=== PATIENT | male | born 1940 | race Caucasian/White ===

== ENCOUNTER → 2017-03-21 | Outpatient (CLI) | payer OTHER, MEDICARE | LOC: FIMAGING 08:22 | PROVIDERS: ATTEND Orthopaedic Surgery | PROC: CP1 Nuclear Medicine, Musculoskeletal System, Planar Nuclear Medicine Imaging (ICD-10-PCS; principal; 2017-03-21) | DX: T84.84XA Pain due to internal orthopedic prosthetic devices, implants and grafts, initial encounter (principal) | CPT/HCPCS: 78315; 78805; A9503; A9570 ==

== ENCOUNTER 2017-12-24 19:46 | Inpatient (IN) | payer OTHER, MEDICARE ==
[2017-12-24] MEDS ORDERED: HYDROmorphONE/DILAUDID 2 MG/ML INJ IVP ONE (20:23)
--- NOTE | 2017-12-24 20:25 | EDPHY ---
H & P <Gualberto Buitrago - Last Filed: 12/24/17 22:38> Stated Complaint: SEVERE LOW BACK PAIN, MRI NEXT WK,XRAY AND INJ LAST WK - Personal History Current Tetanus/Diphtheria Vaccine: Yes - Medical/Surgical History Hx Asthma: No Hx Chronic Respiratory Disease: No Hx Diabetes: No Hx Cardiac Disease: No Hx Renal Disease: No Hx Cirrhosis: No Hx Alcoholism: No Hx HIV/AIDS: No Hx Splenectomy or Spleen Trauma: No Other PMH: L1-S1 FUSION, LEFT SHOULDER, TIA, PE, KIDNEY STONES - Social History Smoking Status: Never smoked <MartinRamesh - Last Filed: 12/24/17 23:01> Time Seen by Provider: 12/24/17 20:05 HPI/ROS: Chief complaint: Low back pain History of present illness: This is a 77-year-old male who presents to the emergency department for severe low back pain. He states he has had low back pain increasing over the last 3 weeks, it dramatically worsened over the last day. He is now unable to move around on his own. He has a history of chronic low back pain. He has had multiple surgeries including fusions and nerve ablation. Further, he states this is complicated by the fact that he is having problems with an allergic reaction to the hardware in his back. He is followed by Dr. Jake Bills who saw him in clinic earlier this week, performed x-rays which were reportedly unremarkable and perform steroid injections. Symptoms have progressed. Earlier today he took 2 [place], 10 mg of Valium and 800 mg of ibuprofen but the pain progresses. He denies any new trauma. He denies any fevers. He denies any new neurologic symptoms compared to his baseline. Review of systems: A 10 point review of systems was obtained and other than described above was negative (Ramesh Salazar) - Physical Exam Exam: General Appearance: Alert, nontoxic. Eyes: Pupils equal and round no pallor or injection. ENT, Mouth: Mucous membranes moist. Respiratory: There are no retractions, lungs are clear to auscultation. Cardiovascular: Regular rate and rhythm. Gastrointestinal: Abdomen is soft and non tender, no masses, bowel sounds normal. Neurological: Alert and oriented x4. Strength and sensation is intact. Reflexes 2+ right patellar and Achilles, trace left patellar and Achilles, this is patient's baseline according him. Straight leg raise is negative bilaterally. Skin: Warm and dry, no rashes. Musculoskeletal: Neck is supple non tender. Extremities are symmetrical, full range of motion. Psychiatric: Patient is oriented X 3, there is no agitation. (Ramesh Salazar) Constitutional: Initial Vital Signs Temperature (C) 36.3 C 12/24/17 19:55 Heart Rate 76 12/24/17 19:55 Respiratory Rate 20 12/24/17 19:55 Blood Pressure 141/67 H 12/24/17 19:55 O2 Sat (%) 94 12/24/17 19:55 O2 Delivery Mode Room Air Allergies/Adverse Reactions: No Known Allergies Allergy (Unverified 12/24/17 19:53) Home Medications: Medication Instructions Recorded Aspirin [Aspirin 81mg (*)] 81 mg PO DAILY 12/24/17 Atorvastatin Calcium [Lipitor 40 40 mg PO DAILY 12/24/17 mg (*)] Clopidogrel Bisulfate [Plavix (*)] 75 mg PO DAILY 12/24/17 DULoxetine [Cymbalta 60 MG (*)] 60 mg PO DAILY 12/24/17 Ibuprofen [Motrin (*)] 400 mg PO Q4-6PRN PRN 12/24/17 Medical Decision Making Consult/Admit Bed Type: [facility] 2215 <Gualberto Buitrago - Last Filed: 12/24/17 22:38> <Ramesh Salazar - Last Filed: 12/24/17 23:01> ED Course/Re-evaluation: Patient is discussed with my secondary supervising physician Dr. Gualberto Buitrago. Patient presents with worsening low back pain. He has a long history of low back pain. He has taken multiple oral medications at home and IV medications here and still unable to ambulate. I will admit him to the hospitalist service. I do not believe emergent MRI is necessary as he is at his neurologic baseline. The plan has has been discussed with the patient who voiced understanding and agreement with it. I have consulted with Dr. Vivek Napoles of Neurosurgery and asked him to see patient in consultation during his admission. (Ramesh Salazar) Other Provider: PHYSICIAN DOCUMENTATION: The patient was evaluated and managed by the Physician Service Parts Coordinator and myself. I have reviewed the chart and agree with the findings and plan of care as documented. In addition, I examined the patient myself at 2235. History confirmed as nontraumatic back pain, only 3/10 after treatment, still can't really walk or move off the bed. Has chronic left quadriceps weakness and left fleming numbness after previous surgery and those findings are not different today. No incontinence or new lower extremity neurologic symptoms. Physical findings as follows: Patellar reflex 2+ on the right, minimal on the left which is chronic for the patient. He has good dorsiflexion and plantar flexion of both feet with toes downgoing and no clonus. Plan for admission to hospitalist service, will inform his neurosurgery group Dr. Jyoti Rainey am the secondary supervising physician. (Gualberto Buitrago) - Data Points Laboratory Results: Laboratory Results 12/24/17 20:48 12/24/17 20:48 12/24/17 12/24/17 20:48 20:48 WBC 7.71 10^3/uL 10^3/uL (3.80-9.50) RBC 4.97 10^6/uL 10^6/uL (4.40-6.38) Hgb 15.5 g/dL g/dL (13.7-17.5) Hct 44.6 % % (40.0-51.0) MCV 89.7 fL fL (81.5-99.8) MCH 31.2 pg pg (27.9-34.1) MCHC 34.8 g/dL g/dL (32.4-36.7) RDW 14.4 % % (11.5-15.2) Plt Count 206 10^3/uL 10^3/uL (150-400) MPV 9.6 fL fL (8.7-11.7) Neut % (Auto) 67.4 % % (39.3-74.2) Lymph % (Auto) 23.5 % % (15.0-45.0) [place] % (Auto) 7.9 % % (4.5-13.0) Eos % (Auto) 0.4 % L % (0.6-7.6) Baso % (Auto) 0.5 % % (0.3-1.7) Nucleat RBC Rel Count 0.0 % % (0.0-0.2) Absolute Neuts (auto) 5.20 10^3/uL 10^3/uL (1.70-6.50) Absolute Lymphs (auto) 1.81 10^3/uL 10^3/uL (1.00-3.00) Absolute Monos (auto) 0.61 10^3/uL 10^3/uL (0.30-0.80) Absolute Eos (auto) 0.03 10^3/uL 10^3/uL (0.03-0.40) Absolute Basos (auto) 0.04 10^3/uL 10^3/uL (0.02-0.10) Absolute Nucleated RBC 0.00 10^3/uL 10^3/uL (0-0.01) Immature Gran % 0.3 % % (0.0-1.1) Immature Gran # 0.02 10^3/uL 10^3/uL (0.00-0.10) Sodium 142 mEq/L mEq/L (135-145) Potassium 4.3 mEq/L mEq/L (3.3-5.0) Chloride 104 mEq/L mEq/L (97-110) Carbon Dioxide 26 mEq/l mEq/l (22-31) Anion Gap 12 mEq/L mEq/L (8-16) BUN 29 mg/dL H mg/dL (7-23) Creatinine 1.0 mg/dL mg/dL (0.7-1.3) Estimated GFR > 60 Glucose 120 mg/dL H mg/dL (70-100) Calcium 9.7 mg/dL mg/dL (8.5-10.4) Medications Given: Discontinued Medications Diazepam (Valium) 5 mg IVP EDNOW ONE Stop: 12/24/17 21:35 Last Admin: 12/24/17 21:41 Dose: 5 mg Hydromorphone HCl (Dilaudid) 1 mg IVP EDNOW ONE Stop: 12/24/17 20:24 Last Admin: 12/24/17 20:50 Dose: 1 mg Departure <Guablerto Buitrago - Last Filed: 12/24/17 22:38> <Ramesh Salazar - Last Filed: 12/24/17 23:01> - Departure Disposition: [facility] Acute Clinical Impression: Back pain Qualifiers: Back pain location: low back pain Chronicity: acute Back pain laterality: unspecified Sciatica presence: without sciatica Qualified Code(s): M54.5 - Low back pain Condition: Good
[2017-12-24] MEDS ORDERED: DIAZEPAM 5 MG/ML 1 ML SYR IVP ONE (21:34)
[2017-12-24 21:44] LABS: PLATELET COUNT 206 10^3/uL (150-400)
[2017-12-24] MEDS ORDERED: ONDANSETRON DISINTEGRATING 4 MG TAB PO PRN (22:27)
[2017-12-24] MEDS ORDERED: ONDANSETRON 4 MG/2 ML VIAL IVP PRN (22:27)
[2017-12-24] MEDS ORDERED: oxyCODONE IR 5 MG TAB PO PRN (22:27)
[2017-12-24] MEDS ORDERED: KETOROLAC 15 MG/1 ML SDV IVP ONE (23:06)
--- NOTE | 2017-12-25 00:03 | PDGENHP ---
History and Physical - Chief Complaint Back pain - History of Present Illness 77 yo M w/ hx of TIA and arthritis presents with intractable back pain. Patient has long history of spinal DJD with a multilevel spinal fusion performed by Dr. Napoles about 10 years ago. Over the last 6 weeks he has been dealing with lower back pain. He describes this as sharp, severe central lower back pain that radiates to the right. This has progressed in severity particularly over the last week. He underwent muscular injections in that area earlier this week without relief. The pain continued to worsen today and then began to involve radiculopathy down his right leg. At this point he came to the ED. He usually takes only Cymbalta for pain. He has been very diligent about avoiding opiate use throughout his long history of chronic back pain. At the time of my evaluation he is comfortable as long as he does not move. Movement exacerbates his pain. He denies any leg weakness or red flag symptoms such as loss of bowel or bladder continence. Case discussed with ED physician Dr. Gualberto Buitrago, previous records reviewed in EMR. History Information - Allergies/Home Medication List Allergies/Adverse Reactions: No Known Allergies Allergy (Unverified 12/24/17 19:53) Home Medications: Aspirin [Aspirin 81mg (*)] 81 mg PO DAILY 12/24/17 [Last Taken 12/24/17 AM] Atorvastatin Calcium [Lipitor 40 mg (*)] 40 mg PO DAILY 12/24/17 [Last Taken 09/07 AM] Clopidogrel Bisulfate [Plavix (*)] 75 mg PO DAILY 12/24/17 [Last Taken 12/24/17 AM] DULoxetine [Cymbalta 60 MG (*)] 60 mg PO DAILY 12/24/17 [Last Taken 12/24/17 AM] Ibuprofen [Motrin (*)] 400 mg PO Q4-6PRN PRN 12/24/17 [Last Taken 12/24/17 PM] I have personally reviewed and updated: family history, medical history - Past Medical History arthritis, TIA - Surgical History Reports: spinal surgery - Family History Additional family history: Asked, denies - Social History Smoking Status: Never smoked Review of Systems Review of Systems: ROS: 10pt was reviewed & negative except for what was stated in HPI & below Physical Exam Physical Exam: Temp Pulse Resp BP Pulse Ox 36.8 C 64 16 128/71 H 96 08/04/18 23:32 12/24/17 23:32 12/24/17 23:32 12/24/17 23:32 12/24/17 23:32 O2 (L/minute) 2 Constitutional: appears nourished, uncomfortable Eyes: PERRL, EOMI Ears, Nose, Mouth, Throat: moist mucous membranes, no oral mucosal ulcers Cardiovascular: regular rate and rhythym, no murmur, rub, or gallop Respiratory: no respiratory distress, clear to auscultation Gastrointestinal: normoactive bowel sounds, soft, non-tender abdomen Skin: warm, normal color Musculoskeletal: full muscle strength, muscular tenderness Neurologic: AAOx3, CN II-XII Intact Psychiatric: interacting appropriately, not anxious Lab Data & Imaging Review 12/24/17 20:48 12/24/17 20:48 WBC 7.71 10^3/uL (3.80-9.50) 12/24/17 20:48 RBC 4.97 10^6/uL (4.40-6.38) 12/24/17 20:48 Hgb 15.5 g/dL (13.7-17.5) 12/24/17 20:48 Hct 44.6 % (40.0-51.0) 12/24/17 20:48 MCV 89.7 fL (81.5-99.8) 12/24/17 20:48 MCH 31.2 pg (27.9-34.1) 12/24/17 20:48 MCHC 34.8 g/dL (32.4-36.7) 12/24/17 20:48 RDW 14.4 % (11.5-15.2) 12/24/17 20:48 Plt Count 206 10^3/uL (150-400) 12/24/17 20:48 MPV 9.6 fL (8.7-11.7) 12/24/17 20:48 Neut % (Auto) 67.4 % (39.3-74.2) 12/24/17 20:48 Lymph % (Auto) 23.5 % (15.0-45.0) 12/24/17 20:48 [place] % (Auto) 7.9 % (4.5-13.0) 12/24/17 20:48 Eos % (Auto) 0.4 % (0.6-7.6) L 12/24/17 20:48 Baso % (Auto) 0.5 % (0.3-1.7) 12/24/17 20:48 Nucleat RBC Rel Count 0.0 % (0.0-0.2) 12/24/17 20:48 Absolute Neuts (auto) 5.20 10^3/uL (1.70-6.50) 12/24/17 20:48 Absolute Lymphs (auto) 1.81 10^3/uL (1.00-3.00) 12/24/17 20:48 Absolute Monos (auto) 0.61 10^3/uL (0.30-0.80) 12/24/17 20:48 Absolute Eos (auto) 0.03 10^3/uL (0.03-0.40) 12/24/17 20:48 Absolute Basos (auto) 0.04 10^3/uL (0.02-0.10) 12/24/17 20:48 Absolute Nucleated RBC 0.00 10^3/uL (0-0.01) 12/24/17 20:48 Immature Gran % 0.3 % (0.0-1.1) 12/24/17 20:48 Immature Gran # 0.02 10^3/uL (0.00-0.10) 12/24/17 20:48 Sodium 142 mEq/L (135-145) 12/24/17 20:48 Potassium 4.3 mEq/L (3.3-5.0) 12/24/17 20:48 Chloride 104 mEq/L (97-110) 12/24/17 20:48 Carbon Dioxide 26 mEq/l (22-31) 12/24/17 20:48 Anion Gap 12 mEq/L (8-16) 12/24/17 20:48 BUN 29 mg/dL (7-23) H 12/24/17 20:48 Creatinine 1.0 mg/dL (0.7-1.3) 12/24/17 20:48 Estimated GFR > 60 12/24/17 20:48 Glucose 120 mg/dL (70-100) H 12/24/17 20:48 Calcium 9.7 mg/dL (8.5-10.4) 12/24/17 20:48 Assessment & Plan Assessment: 77 yo M w/ hx of chronic back pain s/p spinal fusion 10 years ago presents with intractable back pain. Plan: 1. Acute on chronic back pain - Back pain has been bothersome for the last 5-6 weeks but greatly increased in severity over the past few days. The pain is so severe that he cannot ambulate safely. He has also developed radiculopathy down his R leg, which is an unusual symptom for him. He denies red flag symptoms. He had XRs performed earlier this week, which he states were reported as normal. He has a history of spinal fusion by Dr. Napoles about 10 years ago. - Admit for pain control - Toradol IV x1 now hopefully to decrease opiate needs per patient wishes - Oxycodone for moderate pain, morphine for severe, breakthrough pain - Neurosurgery consulted and will evaluate patient in the morning - Will likely need MRI but I will defer this decision to NSG team 2. Hx TIA - On DAPT for this, continue home medications for now. Diet - Regular Code - Full Ppx - SCDs Dispo - Admit under observation status
[2017-12-25 05:51] LABS: PLATELET COUNT 193 10^3/uL (150-400)
[2017-12-25] MEDS: ACETAMINOPHEN 325 MG TAB PO PRN ×3 (09:14→19:09)
--- NOTE | 2017-12-25 09:48 | GCON ---
[f rep st] CONSULTATION DATE OF CONSULTATION: 12/25/2017 HISTORY OF PRESENT ILLNESS: Patient is a 77-year-old male with history of a TIA and osteoarthritis, particularly with shoulder issues with his left shoulder and multiple operations there, who presented to the ED yesterday with intractable back pain. I was consulted by the emergency department at the time. He has been admitted to the Medicine service for pain control. He had an L1-S1 posterior spin al fusion performed by Dr. Siu approximately 10 years ago. Over the past 6 weeks, he has b een dealing with progressively worsening low back pain in the mid lumbar to low lumbar region. He de scribes it as sharp and severe and centrally located, which radiates a bit to the right buttock and h ip. The past week has been particularly bad to the point that he presented yesterday. He did have x -rays at [facility] last week, which we did not have access to and no new imaging performed at [facility] as of yet. No red flags or concerning neurologic symptoms. PAST MEDICAL/SURGICAL HISTORY: Per HPI, chronic pain and hypolipidemia. HOME MEDICATIONS: Aspirin 81, Plavix 75, Lipitor, Cymbalta 60 mg daily for pain, and Motrin as neede d. CODE STATUS: Full. ALLERGIES: None. FAMILY HISTORY: Reviewed, but noncontributory in this particular setting. SOCIAL HISTORY: Nonsmoker. Denies significant alcohol or drug abuse. REVIEW OF SYSTEMS: Ten points reviewed and negative other than stated in HPI. PHYSICAL EXAMINATION: VITAL SIGNS: Afebrile at 36.8, heart rate 64, blood pressure 128/71, respirat ory rate 16, saturating 96% on 2 L nasal cannula. NEUROLOGIC: Awake, alert, oriented x3. Appears s tated age. No acute distress. Normal fluent speech. Normal cranial nerves. 5/5 in all extremities with the exception of range of motion limitation due to his left shoulder issues and some very minor left knee extensor weakness stable from his surgery 10 years ago. Sensory exam normal, except for s ome stable numbness of the left fleming and also since his surgery 10 years ago. Reflex is normal. No Alas's, clonus, or Babinski. He has no cerebellar findings. Old midline lumbar incision well hea led. LABORATORY/IMAGING: White blood cells 7.7, hemoglobin 15.5, platelets 206. Sodium 142, potassium 4. 3, BUN 29, creatinine 1, glucose 120. Review of imaging, there is no new imaging for review. I have reviewed his last x-rays in our system from 2008, indicating an L1-S1 posterior spinal fusion with intact hardware at that time. ASSESSMENT/PLAN: 77-year-old male with a few medical problems who presents with progressive mid to l ow lumbar centrally located back pain, progressive over the past 6 weeks, culminating in severe pain this past week requiring admission for pain control yesterday. He has a relatively normal neurologic exam with stable mild deficits from his surgery 10 years ago and no red flags or concerning neurolog ic symptoms. Given the fact that no imaging is present, we have ordered an MRI of his lumbar spine a nd a CT of his lumbar spine to assess his fusion, hardware, and the soft tissues as well. We are fol lowing along and will follow up on the results of these imaging studies and make further recommendati ons at that time. Thank you. /[id number]/MODL
--- NOTE | 2017-12-25 11:54 | ASMTCMCOM ---
CM Note CM Note Notes: Patient admitted for intractable back pain of 5-6 weeks that has gotten progressively worse in past few days. He has a history of a fusion 10 years ago. NS has consulted and ordered MRI and CT. I anticipate that PT/OT orders will be forthcoming. Patient lives with his and is normally independent; Case Management available for any needs that arise. Date Signed: 12/25/2017 11:53 AM Electronically Signed By:Cindi Luong RN
[2017-12-25] MEDS ORDERED: GADOBUTROL 10 ML VIAL IVP ONE (13:19)
--- NOTE | 2017-12-25 17:14 | HOSPPROG ---
Hospitalist Progress Note Assessment/Plan: DIAGNOSES: * acute worsening of back pain and now with onset of sciatica, history of prior lumbar fusion surgery * no loss of strength or other functions this time; some chronic the sensory losses from previous surgery are unchanged * history of addendum neuropathy, tolerated very high doses of Lyrica which helped for that in past * history of TIA, chronically on aspirin and Plavix for that PLANS: * This patient really is immobilized by his pain will not be able to go home, will require ongoing inpatient care, may actually require injections or surgeries; will need to changed inpatient * Await final readings of MRI and CT and will review those studies with Neurosurgery * Will add Lyrica as he has been benefit by that in the past but may need to get higher dose over time * Will not give aspirin or Plavix at this time in case he requires injection or more aggressive interventional therapy including surgery * If not improving could consider steroid unless he ends up with a surgery that prohibit that SUBJECTIVE: Pain unchanged from yesterday. Medicines allow reasonable relief of his holding still but exquisite pain with any movement OBJECTIVE Vitals reviewed: Stable without fever Furniture Manager, my review: Exam: alert oriented, looks uncomfortable skin warm dry color ok resps not labored lungs clear BSs heart regular abd soft nondistended nontender, bowel sounds present limbs distal sensation intact other than his chronic sensory losses on left from his previous surgery iv site ok BUN remains elevated 29 otherwise stable met panel and CBC Imaging studies: I reviewed images from his CT scan and MRI scan which have not yet been read by Radiology. I do not see any compromise of the spinal canal, any evidence of bleeding or abscess. Old hardware is present and appears to be well seated without loosening as best I can tell but I am not really proficient at interpreting that point. Difficult for me to interpret the neural foramena in the space for the nerve roots in those given the hardware and the other changes of prior surgery. Objective: Vital Signs Temp Pulse Resp BP Pulse Ox 36.4 C 70 16 112/56 L 93 12/25/17 15:23 12/25/17 15:23 12/25/17 15:23 12/25/17 15:23 12/25/17 15:23 Laboratory Results 12/25/17 05:15 12/25/17 05:15 12/24/17 12/25/17 12/26/17 06:59 06:59 06:59 Intake Total 300 1000 Output Total 150 Balance 150 1000 ICD10 Worksheet Patient Problems: Problems Problem Status Onset Back pain Acute
--- NOTE | 2017-12-25 17:59 | PDMN ---
Medical Necessity Medical necessity: Change to IP status per MD order as of 12/25/17. MCG M63 Back Pain: 77 y/o w/ severe back pain, hx of recent prior lumbar fusion surgery. Pt s/x worsening and is now immobilized by pain and will not be able to be d/c'd, require ongoing IP care, may actually require injections or surgeries; will need to change to IP. MRI and CT finals pending. Neurosurgery consult. Hx TIA
[2017-12-25] MEDS: PREGABALIN 75 MG CAP PO SCH (19:09)
[2017-12-25] MEDS: DULoxetine 60 MG CAP PO SCH (19:09)
[2017-12-25] MEDS: ATORVASTATIN CALCIUM 40 MG TAB PO SCH (19:09)
--- NOTE | 2017-12-26 07:04 | SOAPPROG ---
SOAP Progress Note Assessment/Plan: Assessment: 77 yo M 10 years out from L1-S1 fusion with right sided paraspinal muscle pain Plan: neuro: stable MRI/CT w/o evidence of infection, hardware failure or non-union. back pain is likely muscular in nature. Will try Robaxin for muscle spasms ok to discharge home and follow up with DR Bonner in 2-4 weeks Rx for Robaxin placed in chart will sign off please call with neuro changes 12/26/17 07:01 Subjective: continued right sided paraspinal back pain, leg pain seem better. Objective: Vital Signs Temp Pulse Resp BP Pulse Ox 36.6 C 62 16 93/49 L 93 12/25/17 23:17 12/25/17 23:17 12/25/17 23:17 12/25/17 23:17 12/25/17 23:17 Laboratory Results 12/25/17 05:15 12/25/17 05:15 12/25/17 12/26/17 12/27/17 05:59 05:59 05:59 Intake Total 300 1150 Output Total 150 Balance 150 1150 AAOX4, +FC PERRL, EOMI, no facial droop 5/5 + light otuch C/D/I ICD10 Worksheet Patient Problems: Problems Problem Status Onset Back pain Acute
[2017-12-26 08:55] VITALS: BP 109/52
[2017-12-26] MEDS: ATORVASTATIN CALCIUM 40 MG TAB PO SCH (09:24)
[2017-12-26] MEDS: PREGABALIN 75 MG CAP PO SCH (09:25)
[2017-12-26] MEDS: DULoxetine 60 MG CAP PO SCH (09:25)
--- NOTE | 2017-12-26 12:34 | PDDCSUM ---
Discharge Summary Discharge Summary: DISCHARGE DIAGNOSES: * lumbar back pain, suspected musculoskeletal * secondary radicular pain to the leg possibly related to spasms, degenerative spine disease; no cord or nerve root impingement identified * history of TIA, chronically on aspirin and Plavix for that CONSULTANTS: Dr. Edgar Culver PROCEDURES: MRI of lumbar spine HOSPITAL COURSE SUMMARY: This patient with 5 prior spine surgeries developed onset of paraspinous pain with some muscle spasm. This had progressed over several days and finally the patient developed sciatica of the leg without loss of strength or sensation without bowel or bladder dysfunction. Examination other than his uncomfortable appearance was unremarkable. MRI scan showed no evidence of any nerve root or cord impingement, no loosening of his previous hardware, no fractures, no infection The patient was admitted the hospital and treated with rest, anti-inflammatories , and addition of Lyrica. He had very good improvement in his symptoms and is now moving much better. At this point he is not back to baseline but moving rapidly in that direction. He feels comfortable going home. There is no indication for any surgeries or other procedures at this time. Patient instructed not to do any heavy lifting or other activities that would strain his back. He will follow up with Dr. Siu in 2 weeks. He is instructed to watch carefully for any loss of nerve function, fevers, or other concerning symptoms new PENDING TEST RESULTS: None MEDICATION CHANGES: Addition of Lyrica 75 mg twice daily and Robaxin 750 mg four times daily FOLLOW-UP PLAN: Follow up with Dr. Siu in 2 weeks Greater than 35 minutes bedside and care coordination time today
== END 2017-12-26 13:30 | disposition home or self-care (01) | DRG 552 ==
LOC: INTOOBSV 22:17 → F3N 23:26 → OBSVTOIN 12-25 17:19
PROVIDERS: ADMIT Student in an Organized Health Care Education/Training Program; ATTEND Student in an Organized Health Care Education/Training Program
DX: M51.16 Intervertebral disc disorders with radiculopathy, lumbar region (principal); Z86.73 Personal history of transient ischemic attack (TIA), and cerebral infarction without residual deficits
CPT/HCPCS: 96374; 97110-GP; 97161-GP; 97165-GO; A9585; G0378; G8978-GP-CH; G8979-GP-CH; G8980-GP-CH; G8987-GO-CI; G8988-GO-CH; G8989-GO-CH; J1170; J1885; J3360

== ENCOUNTER → 2018-06-17 | Outpatient (CLI) | payer OTHER, MEDICARE | LOC: SUPIMAGING 17:51 | PROVIDERS: ATTEND Nurse Practitioner Family | DX: R05 Cough (principal) | CPT/HCPCS: 71046-PN ==